=== PATIENT | female | born 1995 | race American Indian/Alaskan Native ===

== ENCOUNTER 2016-12-12 20:38 | Emergency (ER) | payer OTHER ==
[2016-12-12 21:02] VITALS: BP 148/89
--- NOTE | 2016-12-14 04:43 | ED Elopement Review ---
ED Pt Elopement review - Call Back decision Pt Call Back Decision: No action required
== END 2016-12-12 21:30 | disposition left against medical advice (07) ==
LOC: ED 20:38
DX: R07.9 Chest pain, unspecified (principal); Z53.21 Procedure and treatment not carried out due to patient leaving prior to being seen by health care provider
CPT/HCPCS: 93005; 93010

== ENCOUNTER 2016-12-21 17:15 | Emergency (ER) | payer OTHER | END 2016-12-21 17:25 | disposition left against medical advice (07) | LOC: ED 17:15 | DX: R07.9 Chest pain, unspecified (principal); R51 Headache; Z53.21 Procedure and treatment not carried out due to patient leaving prior to being seen by health care provider ==

== ENCOUNTER 2018-12-01 12:14 | Emergency (ER) | payer OTHER ==
--- NOTE | 2018-12-01 13:20 | Emergency Department Report ---
Minor Respiratory - HPI Chief Complaint: Upper Respiratory Infection Stated Complaint: FLU LIKE SYMPTOMS Time Seen by Provider: 12/01/18 12:34 Duration: 1 week Pain Location: Facial, Nose, Ear (right ear) Severity: moderate Minor Respiratory: Yes Rhinorrhea, Yes Able to Tolerate Fluids, Yes Ear Pain (right ear), Yes Cough, Yes Sick Contacts (son), Yes Fever, No Sore Throat, No Hemoptysis, No Chest Pain, No Shortness of Breath Other History: This is a 23-year-old female who presents with a productive cough, fever, myalgias, sore throat for one week. Patient states her son was diagnosed with pneumonia last month she thinks she caught something from him. Patient also complains of some frontal pressure that is worse with moving. She is currently taking TheraFlu and ibuprofen with minimal improvement of symptoms. She denies nausea or vomiting, chest pain, or shortness of breath. ED Review of Systems ROS: Stated complaint: FLU LIKE SYMPTOMS Other details as noted in HPI Constitutional: fever. denies: chills ENT: ear pain (right ear), congestion. denies: throat pain, dental pain, hearing loss, epistaxis Respiratory: cough. denies: shortness of breath, wheezing Cardiovascular: denies: chest pain, palpitations Gastrointestinal: denies: abdominal pain, nausea, diarrhea Musculoskeletal: myalgia Neurological: denies: headache, weakness, paresthesias Psychiatric: denies: anxiety, depression ED Past Medical Hx - Past Medical History Previous Medical History?: Yes Hx GERD: Yes Additional medical history: SICKLE CELL TRAIT - Surgical History Past Surgical History?: No - Social History Smoking Status: Never Smoker Substance Use Type: None - Medications Home Medications: Home Medications Medication Instructions Recorded Confirmed Last Taken Type Ibuprofen [Motrin] 800 mg PO Q8HR PRN #20 tablet 08/11/15 10/26/16 10/26/16 09:00 Rx 800 Famotidine [Pepcid] 20 mg PO BID #30 tablet 11/05/16 Unknown Rx Mag Hydrox/Aluminum Hyd/Simeth 20 ml PO QID PRN #1 bottle 11/05/16 Unknown Rx [Maalox Advanced Suspension] Lansoprazole [Prevacid] 15 mg PO QDAY #14 cap 11/09/16 Unknown Rx Naproxen [Naprosyn TAB] 500 mg PO BID #14 tablet 11/09/16 Unknown Rx Amoxicillin/Potassium Clav 1 each PO BID #10 tablet 12/01/18 Unknown Rx [Augmentin 875-125 Tablet] Benzonatate [Tessalon Perle] 100 mg PO TID PRN #30 capsule 12/01/18 Unknown Rx Fluticasone [Flonase] 1 spray NS QDAY #1 bottle 12/01/18 Unknown Rx Minor Respiratory Exam - Exam General: Vital signs noted. No distress. Alert and acting appropriately. HEENT: Yes Pharyngeal Erythema (erythematous posterior pharynx, uvila midline), Yes Moist Mucous Membranes, Yes Rhinorrhea (turbinates congested with mucoid discharge), Yes Frontal Tenderness, No Pharyngeal Exudates, No Conjuctival Injection, No Maxillary Tenderness Ear: Neither TM Bulge, Neither TM Erythema, Neither EAC Pain, Neither EAC Discharge Neck: Yes Supple, No Adenopathy Lungs: Yes Good Air Exchange, No Wheezes, No Ronchi, No Stridor, No Cough, No Labored Respirations, No Retractions, No Use of Accessory Muscles, No Other Abnormal Lung Sounds Heart: Yes Regular, No Murmur Abdomen: Yes Normal Bowel Sounds, No Tenderness, No Peritoneal Signs Skin: No Rash, No Edema Neurologic: Alert and oriented, no deficits. Musculoskeletal: Unremarkable. ED Course Vital Signs 12/01/18 12:23 Temperature 99.2 F Pulse Rate 109 H Respiratory 18 Rate Blood Pressure 114/72 O2 Sat by Pulse 98 Oximetry ED Medical Decision Making - Medical Decision Making 23 y.o. female that presents with congestion, fever, myalgia, and productive cough x 1 week. Patient examined by me and stable. No distress noted. Tachycardia on arrival. On focal exam frontal sinus tenderness, turbinates with congestion, and erythematous posterior pharynx, physical findings and susceptible to acute sinusitis. Start Flonase, benzonatate, and Augmentin. Discharged home stable. Follow up with Primary Care Provider in 2-3 days. Critical care attestation.: If time is entered above; I have spent that time in minutes in the direct care of this critically ill patient, excluding procedure time. ED Disposition Clinical Impression: Productive cough, Posterior rhinorrhea Acute frontal sinusitis Qualifiers: Recurrence: non-recurrent Qualified Code(s): J01.10 - Acute frontal sinusitis, unspecified Disposition: TO HOME OR SELFCARE Is pt being admited?: No Does the pt Need Aspirin: No Condition: Stable Instructions: Sinusitis (ED) Additional Instructions: Use warm moist compresses over sinuses. Use ibuprofen or Tylenol for pain. Use nasal saline spray. Avoid taking antihistamines. Follow up with Primary Care Provider if fever, short of breath, chest pain, or symptoms do not improve as discussed. Prescriptions: Amoxicillin/Potassium Clav [Augmentin 875-125 Tablet] 1 each PO BID #10 tablet Benzonatate [Tessalon Perle] 100 mg PO TID PRN #30 capsule PRN Reason: Cough Fluticasone [Flonase] 1 spray NS QDAY #1 bottle Referrals: [facility], [facility] [Provider Group] - 3-5 Days [facility] [Provider Group] - 3-5 Days [facility] [Provider Group] - 3-5 Days Forms: Work/School Release Form(ED) Time of Disposition: 13:22
== END 2018-12-01 13:33 | disposition home or self-care (01) ==
LOC: ED 12:14
CPT/HCPCS: 99282